=== PATIENT | female | born 1995 | race Asian ===

== ENCOUNTER 2016-12-24 08:29 | Emergency (ER) | payer OTHER ==
[2016-12-24 08:32] VITALS: TEMP 36.7
[2016-12-24] MEDS ORDERED: [UNRECOGNIZED DRUG - REMARK] (09:00)
--- NOTE | 2016-12-24 09:42 | DIAGNOSTIC IMAGING REPORT ---
CHEST 2 VIEWS ROUTINE HISTORY: 21 years-old Female cough, SOB acute cough with shortness of breath. COMPARISON: None available TECHNIQUE: Frontal and lateral views of the chest FINDINGS: Cardiomediastinal and hilar silhouettes are within normal limits. There is no pneumothorax, pleural effusion, focal airspace consolidation or overt pulmonary edema. There is minimal convex right curvature of the midthoracic spine of less than 10 degrees. The bones appear grossly intact. IMPRESSION: No acute cardiopulmonary process. The above report was generated using voice recognition software. It may contain grammatical, syntax or spelling errors. Electronically signed by: James Banuelos M.D. 12/24/2016 9:40 AM Dictated Date/Time: 12/24/2016 9:38 AM
[2016-12-24] MEDS ORDERED: MULT-1027 PO (09:44)
[2016-12-24 10:23] VITALS: BP 93/59; PULSE 80; O2SAT 99
--- NOTE | 2016-12-24 15:59 | EMERGENCY ROOM VISIT NOTE ---
ED Visit Note First contact with patient: 08:54 CHIEF COMPLAINT: Sore throat, cough, shortness of breath HISTORY OF PRESENT ILLNESS: This 21-year-old female patient reports increasing pain in the throat over the last 3 days, gradual in onset. It is worse with swallowing. No fever, but she has had chills and sweats. No rashes. Denies any posterior neck pain or stiffness. She complains of a dry cough as well as occasional shortness of breath. No ear pain or abdominal pain. Symptoms came on gradually. There has been no chest pain, no nausea or vomiting. No known ill contacts. Pain is 2/10. She has tried some unknown medication from [place] without improvement. REVIEW OF SYSTEMS: HEENT: No dizziness, visual problems, hearing loss, or tinnitus. no oral lesions are present. LYMPH: No adenopathy. PULMONARY: No sputum production or hemoptysis. CARDIOVASCULAR: No chest pain, palpitations, or peripheral edema. GASTROINTESTINAL: No diarrhea, constipation, nausea, vomiting, or abdominal pain. GENITOURINARY: No dysuria, frequency, urgency or nocturia. NEUROLOGIC: No weakness, muscle tenderness, epilepsy or history of neurological problems. MUSCULOSKELETAL: No history of joint tenderness/swelling. SKIN: No rashes or lesions. ENDOCRINE: No history of diabetes, thyroid disorders, or abnormal hair growth. Supplemental sheet was reviewed and signed. Previous surgeries: None Medical history: History of bronchitis Current medications: Unknown medication from [place] Allergies: NKDA Family History: Noncontributory. Parents are living SOCIAL HISTORY: [employer] student. Lives with roommates. Unemployed. Single. No tobacco use. Occasional EtOH use. PHYSICAL EXAM: Vital Signs: Afebrile. Reviewed and filed in patient's chart MENTAL STATUS: Alert and oriented. Skin:Warm and dry with good turgor. No rashes or lesions. No ecchymosis or erythema. The patient is not diaphoretic. No abrasions. HEENT: Normocephalic atraumatic. Eyes PERRLA, EOMI. No conjunctiva or scleral injection. Wearing glasses Ears TMs intact bilaterally with good light reflexes. No erythema or bulging. No hemotympanum. Canals are patent. Nares patent bilaterally without turbinate enlargement. Clear nasal drainage. No epistaxis. Oropharynx with erythema and exudate. Uvula midline, oral mucosa moist. No lesions present. Lymphatics are palpated with left anterior chain enlargement and tenderness. No posterior chain enlargement or tenderness. No findings on the right. Heart: Heart RRR. No MGR. Peripheral pulses are 2+. Lungs: Lungs are clear to auscultation. No crackles, rhonchi, or wheezing. Good air movement. The patient is able to take a deep breath. Data: Rapid strep obtained today was negative. Back up cultures were sent. Chest x-ray obtained today was read by radiology as unremarkable. DIAGNOSIS: Acute viral pharyngitis. DISCHARGE INSTRUCTIONS & TREATMENT: Patient was educated regarding today's findings. Conservative care measures were discussed. She will be called if the back up cultures return positive. Maintain hydration. Tylenol and ibuprofen every 6 hours as needed for discomfort. Read the pharyngitis (sore throat) instruction sheet. Follow-up with her PCP or [place] [facility] as needed. Current/Historical Medications Scheduled Multiple Vitamin (Multi Vitamin), 1 TAB PO DAILY Miscellaneous Medications [Unknown Danish Meds], Unknown Dose Allergies Coded Allergies: No Known Allergies (Unverified , 12/24/16) Vital Signs Date Time Temp Pulse Resp B/P (MAP) Pulse Ox O2 Delivery O2 Flow Rate FiO2 12/24/16 10:23 80 16 93/59 99 Room Air 12/24/16 08:32 36.7 98 18 111/71 98 Room Air 12/24/16 08:32 98 Room Air Departure Information Impression Primary Impression: Cough Additional Impression: Sore throat Dispostion Home / Self-Care Condition GOOD Referrals [facility] Forms WORK / SCHOOL INSTRUCTIONS, HOME CARE DOCUMENTATION FORM, MOTRIN USE, TYLENOL USE, IMPORTANT VISIT INFORMATION Patient Instructions Sore Throat - [facility], [facility] Additional Instructions Tylenol and Motrin every 6 hours as needed for discomfort Maintain hydration Sore throat lozenges may improve comfort Follow-up with [facility] if symptoms become worse You'll be called if the strep culture returns positive Problem Qualifiers
== END 2016-12-24 10:39 | disposition home or self-care (01) ==
LOC: C.EDB 08:32
DX: R05 Cough (principal); J02.9 Acute pharyngitis, unspecified